=== PATIENT | male | born 1975 | race Caucasian/White ===

== ENCOUNTER 2023-04-26 14:34 | Emergency (ER) | payer OTHER ==
[2023-04-26 14:50] VITALS: BP 152/93; PULSE 80; RESP 16; TEMP 100.3; BMI 34.2
[2023-04-26] MEDS ORDERED: SULFAMETHOXAZOLE/TRIMETHOPRIM 800MG/160MG D.S. TABLET ONE (16:31)
[2023-04-26] MEDS: SULFAMETHOXAZOLE/TRIMETHOPRIM 800MG/160MG D.S. TABLET PO ONE (16:32)
== END 2023-04-26 16:37 | disposition home or self-care (01) ==
LOC: FER 14:34
DX: L03.115 Cellulitis of right lower limb (principal); M79.661 Pain in right lower leg; L53.9 Erythematous condition, unspecified; R21 Rash and other nonspecific skin eruption; Z20.822 Contact with and (suspected) exposure to COVID-19
CPT/HCPCS: 0241U-QW; 93971-TC; 99284-25